=== PATIENT | male | born 1970 | race Caucasian/White ===

== ENCOUNTER 2018-05-15 14:57 | Emergency (ER) | payer OTHER, BC ==
[2018-05-15 15:10] VITALS: BP 132/88
--- NOTE | 2018-05-15 15:50 | EDPHY ---
H & P Time Seen by Provider: 05/15/18 15:03 HPI/ROS: CHIEF COMPLAINT: Right knee pain HISTORY OF PRESENT ILLNESS: Patient states around 1:00 a.m. This afternoon he was working at [employer]. He states he was moving a large, heavy door with a co-worker. The door started to tip and as he tried to correct the movement of the door he twisted his right knee. He states his foot was planted and the knee rotated and he felt a pop. He describes pain to the lateral aspect of the knee and radiates down into the lateral aspect of the calf. He did not fall. He denies any numbness, weakness. He states he is able to walk with minimal pain but feels that it is"stiff". REVIEW OF SYSTEMS: Negative except per HPI. General Appearance: Alert, no distress. Eyes: Pupils equal and round no icterus Respiratory: No respiratory distress Neurological: Awake, alert, no focal deficits. Skin: Warm and dry, no rashes. Musculoskeletal: Neck is supple nontender. Extremities are symmetrical, full range of motion, right knee with very minimal swelling at the lateral joint space. Some tenderness to palpation at that location. No discernible ligamentous instability. Some mild discomfort with axial loading and rotation to the lateral aspect. Distal functions intact. Psychiatric: Patient is oriented X 3, there is no agitation. Medical/surgical history: Seizure disorder. No surgeries. Social history: No tobacco, drugs. Rare EtOH. [facility] care is at [facility]. Smoking Status: Never smoked Constitutional: Initial Vital Signs Temperature (C) 36.9 C 05/15/18 15:05 Heart Rate 70 05/15/18 15:05 Respiratory Rate 16 05/15/18 15:05 Blood Pressure 132/88 H 05/15/18 15:05 O2 Sat (%) 95 05/15/18 15:05 O2 Delivery Mode Room Air Allergies/Adverse Reactions: Penicillins Allergy (Verified 05/15/18 15:04) Home Medications: Medication Instructions Recorded Anna 05/15/18 Medical Decision Making - Diagnostics Imaging Results: Imaging Impressions Knee X-Ray 05/15/18 15:26 Impression: Joint effusion with no acute osseous findings. Imaging: I viewed and interpreted images myself Differential Diagnosis: Differential diagnosis includes fracture, dislocation, ligamentous injury, meniscal injury. After evaluation likely lateral meniscal injury with no evidence of ligamentous instability or fracture. Patient will be placed in a knee immobilizer [facility] Huizar, orthopedist. Recommended remaining in the knee immobilizer until follow-up with orthopedist. Also discussed rest, ice, compression, elevation. Patient is able to return to work with limitations related to wearing the knee immobilizer only. Understands follow-up and home care. Stable for discharge. Departure - Departure Clinical Impression: Internal derangement of knee involving lateral meniscus Condition: Good Instructions: Knee Sprain (ED), Knee Immobilizer (ED) Additional Instructions: Use knee immobilizer at all times until you have follow-up with orthopedist. You can take it off for sleeping and showers. Also use ice, ibuprofen for pain as needed. Elevation will help as well. Follow up with the orthopedist or your workmen's comp clinic on Sunday. Referrals: ROSALIE KENDRICK,. [Primary Care Provider] - As per Instructions Fermin Huizar MD [Medical Doctor] - As per Instructions
== END 2018-05-15 16:00 | disposition home or self-care (01) ==
LOC: CED 14:57
DX: M25.461 Effusion, right knee (principal); M23.300 Other meniscus derangements, unspecified lateral meniscus, right knee
CPT/HCPCS: 73562-PO; L1830